=== PATIENT | male | born 1955 | race Caucasian/White ===

== ENCOUNTER 2019-03-30 05:18 | Inpatient (IN) | payer OTHER ==
[2019-03-30 05:46] LABS: #Basophils 0.1 thou/uL (0.0-0.2); #Eosinphils 0.4 thou/uL (0.0-0.7); #Lymphocytes 3.9 thou/uL (1.20-3.40); #Monocytes 0.6 thou/uL (0.11-0.59); #Neutrophils 5.4 thou/uL (1.40-6.50); %Basophils 0.8 % (0.0-1.0); %Eosinophils 3.9 % (0.0-10.0); %Lymphocytes 37.6 % (21.0-51.0); %Neutrophils 51.6 % (42.0-75.0); Hemoglobin 16.4 g/dL (14.0-18.0); Mean Corpuscular HGB CONC 33.7 g/dL (32.0-36.0); Mean Corpuscular Hemoglobin 30.8 pg (27.0-31.0); Mean Corpuscular Volume 91.3 fL (78.0-98.0); Mean Platelet Volume 8.4 fL (7.4-10.4); Platelet Count 226 thou/uL (130-400); RBC Distribution Width 12.7 % (11.5-14.5); Red Blood Cell (RBC) Count 5.31 mill/uL (4.70-6.10); White Blood Cell (WBC) Count 10.4 thou/uL (4.8-10.8)
[2019-03-30] MEDS ORDERED: cloNIDine 0.1 MG TAB ONE (05:46)
--- NOTE | 2019-03-30 07:30 | RAD ---
EXAM: Single view of the chest HISTORY: Hypertension and dizziness COMPARISON: None FINDINGS: Single view of the chest shows a normal sized cardiomediastinal silhouette. There is no lilibeth dence of consolidation, mass, or pleural effusion. The bones are unremarkable. IMPRESSION: No evidence of acute cardiopulmonary disease
[2019-03-30 07:32] LABS: Albumin 4.2 g/dL (3.4-4.8)
[2019-03-30 07:33] LABS: Chloride 103 mmol/L (98-107); Potassium 3.8 mmol/L (3.5-5.1); Sodium 136 mmol/L (136-145)
[2019-03-30 07:34] LABS: Globulin 2.6 g/dL (2.4-3.5); Glucose 115 mg/dL (80-115); Protein, Total 6.8 g/dL (5.8-8.1)
[2019-03-30 07:35] LABS: Anion Gap 13 mmol/L (10-20); Carbon Dioxide 24 mmol/L (23-31)
[2019-03-30 07:36] LABS: Bilirubin, Total 0.5 mg/dL (0.2-1.2)
[2019-03-30 07:37] LABS: Alkaline Phosphatase 77 U/L (40-150); Calc. Creatinine Clearance 0 mL/min (70-130); Estimated GFR-MDRD 66
[2019-03-30 07:38] LABS: BUN (Urea Nitrogen) 19 mg/dL (8.4-25.7)
[2019-03-30 07:39] LABS: AST (SGOT) 20 U/L (5-34)
[2019-03-30 07:40] LABS: ALT (SGPT) 36 U/L (8-55)
[2019-03-30 08:26] LABS: Acetaminophen Less than 6.0 mcg/mL (10.0-30.0); Alcohol Less than 10 mg/dL (Less than 10); Salicylate Less than 8.0 mg/dL (15.0-30.0)
[2019-03-30] MEDS ORDERED: Iopamidol 370 76% 100 ML VIAL ONE (09:09)
[2019-03-30 09:21] LABS: Troponin I Less than 0.010 ng/mL (< 0.028)
[2019-03-30] MEDS ORDERED: Bisacodyl 10 MG SUPP PR PRN (10:01)
[2019-03-30] MEDS ORDERED: Senokot S 8.6-50 MG TAB PO PRN (10:01)
[2019-03-30] MEDS ORDERED: Guaifenesin DM 100-10/5 ML UDCUP PO PRN (10:01)
[2019-03-30] MEDS ORDERED: Acetaminophen 325 MG TAB PO PRN (10:01)
[2019-03-30] MEDS ORDERED: Nitroglycerin 0.4 MG TAB (25 Tab Bottle) PO PRN (10:01)
--- NOTE | 2019-03-30 10:50 | HP ---
REASON FOR ADMISSION: Chest pain, symptomatic bradycardia with brief CPR of 15 minutes. HISTORY OF PRESENTING ILLNESS: The patient gives history of waking up around 2: 30 in the morning with left upper extremity pain. This was a deep pain, which woke him up. It was 6/10 in intensity, lasted for more than an hour. As the pain was still there till 3:30 in the morning, the patient took BC Powder. He tried to get up and walk, but then was feeling dizzy. He managed to call his and finally made it to the emergency room here. On arrival, the patient had a blood pressure of 186 /145 and his pulse was 64. He received Zofran for nausea and also received aspirin and a tablet of clonidine 0.1 mg around 5:49 a.m. The patient developed bradycardia with heart rates going into 30s and had to be resuscitated for 15 minutes. The patient currently is fully awake, alert, and oriented. The entire history of presenting illness is obtained by talking to him. No prior history of low heart rates. No complaints of chest pain at present. He does not have any left upper extremity pain at present. No history of cervical spine trauma or pain in the past. No prior cardiac workup including stress test. Currently, his heart rate is around 64 per minute. PAST MEDICAL AND SURGICAL HISTORY: Hypertension, gout. Colonoscopy done when he was 52 years was normal. He has had ultrasound of the abdomen, which ruled out aortic aneurysm a year back, GERD. CURRENT MEDICATION: 1. Allopurinol 100 mg daily. 2. Prilosec p.r.n. 3. Lisinopril, unknown dose daily. ALLERGIES: NO KNOWN DRUG ALLERGIES. PERSONAL HISTORY: Does not smoke, but occasionally does marijuana. Drinks a 12 pack of beer on the weekend. Does not do any other drugs. FAMILY HISTORY: Mother is living, but has had history of aortic aneurysm. Father at the age of 87 years. He has had history of aortic aneurysm. Has a brother who got operated for aortic aneurysm and is living at present. CODE STATUS: Full. REVIEW OF SYSTEMS: CONSTITUTIONAL: Negative for weight loss or gain, ability to conduct usual activities. SKIN: Negative for rash, itching. EYES: Negative for double vision, pain. ENT/MOUTH: Negative for nose bleeding, neck stiffness, pain, tenderness. CARDIOVASCULAR: Negative for palpitations, dyspnea on exertion, orthopnea. RESPIRATORY: Negative for shortness of breath, wheezing, cough, hemoptysis, fever or night sweats. GASTROINTESTINAL: Negative for poor appetite, abdominal pain, heartburn, nausea , vomiting, constipation, or diarrhea. GENITOURINARY: Negative for urgency, frequency, dysuria, nocturia. MUSCULOSKELETAL: Negative for pain, swelling. NEUROLOGIC/PSYCHIATRIC: Negative for anxiety, depression. ALLERGY/IMMUNOLOGIC: Negative for skin rash, bleeding tendency. PHYSICAL EXAMINATION: GENERAL: The patient is a 63-year-old male who is currently not in any acute distress. VITAL SIGNS: Blood pressure 114/84, pulse 68 per minute, respiratory rate 18 per minute, temperature 98 degrees Fahrenheit, saturating 99% on room air. NECK: Supple. No elevated JVD. HEENT: Eyes; extraocular muscles intact. Pupils reacting to light. Oral cavity, mucous membranes are moist. No exudates or congestion. CARDIOVASCULAR SYSTEM: S1, S2 heard. Regular rhythm. RESPIRATORY SYSTEM: Air entry 2+ bilateral. No rales or rhonchi. ABDOMEN: Soft. Bowel sounds heard. No tenderness, rigidity, or guarding. EXTREMITIES: No peripheral edema or calf tenderness. Peripheral pulses are 2+ bilateral. No ischemic ulcerations or gangrene. CENTRAL NERVOUS SYSTEM: No gross focal deficits noted. The patient is alert, awake, and oriented well. PSYCHIATRIC SYSTEM: The patient's mood is euthymic. No hallucinations or delusions. LABORATORY DATA: EKG done at 5:29 a.m. shows normal sinus rhythm at 67 beats per minute. There is questionable Q-waves in V1, V2. A repeat EKG done at 7:24 a.m. shows sinus bradycardia at 55 beats per minute. No other gross ST-T wave changes seen. White count of 10, H and H 16 and 48, platelet count 226, MCV is 91 with 51% neutrophils. Electrolytes stable. BUN 19, creatinine 1.1. Serum glucose 115. Liver enzymes within normal limits. Troponin x2 negative. CK level 78. BNP is 43. Albumin is 4.2. Lipase is 14. Serum drug screen is negative. Chest x-ray done shows no acute cardiopulmonary abnormalities. CLINICAL IMPRESSION AND PLAN: The patient will be admitted to Telemetry for brief symptomatic bradycardia with brief CPR done for 15 minutes with complete recovery of his pulse. The patient has atypical chest pain with left upper extremity pain. No prior cardiac workup. Dr. Atwood has been consulted from ER. He will be kept n.p.o. Full-dose aspirin and normal saline at 70 mL per hour. Echo with 2D Doppler for LV function. A urine drug screen will also be collected. We will await Cardiology opinion for either a stress test or angiogram per Dr. Atwood's advice. He is currently hemodynamically stable at present. Job ID: [id number] MTDD
--- NOTE | 2019-03-30 11:10 | CON ---
DATE OF CONSULTATION: 03/30/2019 HISTORY OF PRESENT ILLNESS: This is a 63-year-old gentleman, who presents for evaluation of chest discomfort. The patient has a previous history of hypertension. The patient was in his usual state of health when he developed left arm discomfort, this started about 2:30 a.m. The patient came to the emergency room. He was noted to be markedly hypertensive. In the emergency room, the patient suddenly felt weak, lightheaded, and lost consciousness. The patient's arm pain resolved. The patient has no present chest or arm discomfort. PAST MEDICAL HISTORY: Hypertension and gout. PAST SURGICAL HISTORY: None. SOCIAL HISTORY: Nonsmoker. FAMILY HISTORY: There is a family history of abdominal aortic aneurysm. ALLERGIES: NO KNOWN DRUG ALLERGIES. MEDICATIONS: Lisinopril and allopurinol. PHYSICAL EXAMINATION: GENERAL: This is a well-developed gentleman, in no acute distress. VITAL SIGNS: Blood pressure 140/90. NECK: No jugular venous distention. LUNGS: Clear to auscultation. HEART: Regular rate and rhythm. Normal S1 and S2. No murmurs. ABDOMEN: Nondistended. EXTREMITIES: Showed no edema. VASCULAR: Radial pulses are 2+. LABORATORY DATA: White blood cell count 10.4, hemoglobin 16.4, hematocrit 48.5 , and platelets 226. Troponin less than 0.01. IMAGING STUDIES: His EKG revealed normal sinus rhythm, normal ECG. His equipment monitor phototypesetting revealed a sinus arrest. IMPRESSION: 1. Hypertensive crisis. 2. Possible vagovagal syndrome. 3. Hypertension. This gentleman presents with hypertensive crisis and left arm pain. His EKG shows no acute abnormalities. His troponin is unremarkable. The patient did lose consciousness in the emergency room. We have discussed the option of stress testing versus invasive evaluation to evaluate the extent if he has significant coronary artery disease. The patient prefers invasive evaluation. The risks have been explained for the patient including ND, bleeding, stroke, cardiac arrhythmia, cardiac . PLAN: 1. Proceed with cardiac catheterization. 2. EP evaluation. Critical care time 1 hour. Job ID: [id number] MTDD
[2019-03-30] MEDS ORDERED: Lidocaine 1% (PF) 30 ML VIAL ONE (11:23)
[2019-03-30 12:07] LABS: Troponin I 0.011 ng/mL (< 0.028)
[2019-03-30] MEDS ORDERED: Acetaminophen/Codeine 30-300mg Tablet PO PRN ×2 (12:25)
[2019-03-30] MEDS ORDERED: Sodium Chloride 0.9% 200 ML IV PRN (12:25)
[2019-03-30] MEDS ORDERED: Nitroglycerin 0.4 MG TAB (25 Tab Bottle) SL PRN (12:25)
[2019-03-30 13:29] VITALS: BMI 28.5
[2019-03-30] MEDS: Sodium Chloride 0.9% 1,000 ML IV SCH (13:39)
[2019-03-30 14:31] LABS: Amphetamine Not Detected (NotDetected); Barbiturates Screen Not Detected (NotDetected); Benzodiazepine Screen Not Detected (NotDetected); Cocaine Metabolite Screen Not Detected (NotDetected); Medtox Control Line Valid? VALID (VALID); Medtox Reader # READER 1; Methadone Not Detected (NotDetected); Methamphetamine Not Detected (NotDetected); Opiate Screen Not Detected (NotDetected); Oxycodone Screen Not Detected (NotDetected); Phencyclidine (PCP) Not Detected (NotDetected); THC/Cannabinoid Screen Not Detected (NotDetected); Tricyclic Screen Not Detected (NotDetected)
[2019-03-30] MEDS ORDERED: DOPamine/D5W 400 mg/250 ml PREMIX ONE (15:00)
--- NOTE | 2019-03-30 15:06 | CON ---
DATE OF CONSULTATION: REASON FOR CONSULTATION: Bradycardia and syncope. HISTORY OF PRESENT ILLNESS: This is a 63-year-old, otherwise fairly healthy gentleman, who was in his usual state of health until last night when he began to have some left arm pain. He describes it as shooting left arm pain down the inner side of his arm. He got up at about 2 a.m. and went to another room and felt a little bit lightheaded. He went to the emergency room after that. In the emergency room, he was noted to have hypertension and after sitting in the emergency room for period of time, felt hot and flushed and had a syncopal spell. It appears on his monitor that he had sinus bradycardia with a sinus arrest and CPR was initiated, although briefly and ultimately, he was taken to the [facility] because of his left arm pain. His heart catheterization showed no evidence of significant coronary artery disease and normal left ventricular function. His 12-lead ECG shows normal sinus rhythm with normal intervals and no evidence of any iron channelopathy swing or abnormalities. PAST MEDICAL HISTORY: Significant for syncope in the past. He did have one episode of vagally mediated syncope associated with pain in his neck. There is a history of gout, hypertension. ALLERGIES: HE HAS NO KNOWN DRUG ALLERGIES. MEDICATIONS: His current medications include lisinopril. SOCIAL HISTORY: Denies any alcohol, tobacco, or drugs. FAMILY HISTORY: He is and lives with his . No early coronary disease complaints. REVIEW OF SYSTEMS: Otherwise unremarkable. In particular, there is no fevers, chills, nausea, vomiting, diarrhea, change in hearing, taste, vision, smell, abdominal discomfort, blood in urine, blood in the stool, ataxia depression, anxiety. PHYSICAL EXAMINATION: He is comfortable, no acute distress. Blood pressure is 144/80, his heart rate is 70 and regular. His neck reveals no increased JVD. His heart is regular rate. Normal S1, S2. LUNGS: Clear to auscultation bilaterally. ABDOMEN: Soft, nontender. Extremities are no clubbing, cyanosis, or edema. A 12-lead ECG shows them to be normal sinus rhythm and is essentially normal. IMPRESSION AND PLAN: Syncope in a patient with a normal ECG and normal left ventricular function in the setting of an ER visit. Impression I suspect Mr. yuni Li syncope is most likely vagally mediated. He does not have any other clear causes syncope and indeed his ECG shows sinus slowing prior to sinus arrest at the current time. I do not think that he would benefit from permanent pacemaker or any medications. I have counseled him on increasing his fluid intake and watching for signs of syncope. He may since this is the second episode. He may follow up with Electrophysiology as an outpatient. Job ID: [id number]
[2019-03-30] MEDS: Famotidine 20 MG TAB PO SCH (20:03)
[2019-03-30] MEDS ORDERED: Rosuvastatin 20 MG TAB PO SCH (21:00)
[2019-03-30] MEDS ORDERED: Lisinopril 10 MG TAB PO SCH (21:00)
[2019-03-31] MEDS: Sodium Chloride 0.9% 1,000 ML IV SCH (02:00)
[2019-03-31 04:59] LABS: #Basophils 0.1 thou/uL (0.0-0.2); #Eosinphils 0.3 thou/uL (0.0-0.7); #Monocytes 0.5 thou/uL (0.11-0.59); #Neutrophils 4.6 thou/uL (1.40-6.50); %Basophils 0.9 % (0.0-1.0); %Lymphocytes 35.4 % (21.0-51.0); %Monocytes 5.9 % (0.0-10.0); %Neutrophils 53.8 % (42.0-75.0); Hemoglobin 14.4 g/dL (14.0-18.0); Mean Corpuscular HGB CONC 33.7 g/dL (32.0-36.0); Mean Corpuscular Hemoglobin 31.1 pg (27.0-31.0); Mean Corpuscular Volume 92.2 fL (78.0-98.0); Mean Platelet Volume 8.4 fL (7.4-10.4); Platelet Count 194 thou/uL (130-400); RBC Distribution Width 12.7 % (11.5-14.5); Red Blood Cell (RBC) Count 4.64 mill/uL (4.70-6.10); White Blood Cell (WBC) Count 8.6 thou/uL (4.8-10.8)
[2019-03-31 05:19] LABS: Anion Gap 10 mmol/L (10-20); BUN (Urea Nitrogen) 16 mg/dL (8.4-25.7); Calc. Creatinine Clearance 96 mL/min (70-130); Calcium 9.1 mg/dL (7.8-10.44); Carbon Dioxide 28 mmol/L (23-31); Cardiac Risk 5.4 (Less than 4.5); Chloride 106 mmol/L (98-107); Cholesterol 179 mg/dl (< 200 Desired); Estimated GFR-MDRD 71; Glucose 113 mg/dL (80-115); HDL Cholesterol 33 mg/dL (>60 Neg Risk); LDL Cholesterol, Calculated 119 mg/dL; Potassium 4.8 mmol/L (3.5-5.1); Sodium 139 mmol/L (136-145); Triglycerides 136 mg/dL (Less than 150)
[2019-03-31 07:07] VITALS: TEMP 97.7
[2019-03-31] MEDS: Famotidine 20 MG TAB PO SCH (08:32)
[2019-03-31 08:33] VITALS: BP 133/101
[2019-03-31] MEDS ORDERED: Aspirin 325 mg Enteric Coated Tablet PO SCH (09:00)
[2019-03-31] MEDS ORDERED: Enoxaparin Sodium 40 MG/0.4 ML SYRINGE SC SCH (09:00)
[2019-03-31] MEDS ORDERED: Lisinopril 20 MG TAB PO SCH (09:00)
--- NOTE | 2019-03-31 14:13 | PDOC.CTH ---
Cardiology Progress Note - Subjective EP PROGRESS NOTE: 03/31/19 Seen as follow up for sinus arrest and hx of syncope. No recurrent rhythm issues overnight. Likely Dc today. No cardiac complaints at this time - Objective Vital Signs Temp Pulse Resp BP Pulse Ox 03/31/19 07:05 96 03/31/19 07:02 97.7 F 54 L 18 158/66 H 96 03/31/19 03:13 98 F 69 15 157/94 H 98 Weight 204 lb 11.2 oz 03/30/19 03/31/19 04/01/19 06:59 06:59 06:59 Intake Total 1320 Balance 1320 - Physical Examination General/Neuro: alert & oriented x3, NAD Neck: carotid US brisk, no JVD present Lungs: CTA, unlabored respirations Heart: PMI normal, RRR Abdomen: NT/ND, soft - Telemetry Telemetry Rhythm: SR - Labs Result Diagrams: 03/31/19 04:25 03/31/19 04:25 Troponin/CKMB Troponin I 0.011 ng/mL (< 0.028) 03/30/19 11:28 - Assessment/Plan 1. Sinus arrest - transient, likely vasovagal - history of remote pain related vasovagal episode 2. Chest pain - LHC showed minimal CAD, normal EF Monitor for recurrence. Will see back as OP. offered ILR, which patient declined. No definite need for PPM at this time.
--- NOTE | 2019-04-02 12:08 | EKG ---
Test Reason : Blood Pressure : / mmHG Vent. Rate : 067 BPM Atrial Rate : 067 BPM P-R Int : 182 ms QRS Dur : 086 ms QT Int : 404 ms P-R-T Axes : 054 006 032 degrees QTc Int : 426 ms Normal sinus rhythm Septal infarct , age undetermined Abnormal ECG #1 Confirmed by ADELIA RODARTE DO ([id number]), magazine editor EMANUEL LAO ([id number]) on 04/02/2019 12:08:12 PM Referred By: Confirmed By:ADELIA RODARTE DO
--- NOTE | 2019-04-02 12:53 | EKG ---
Test Reason : DIZZY Blood Pressure : / mmHG Vent. Rate : 055 BPM Atrial Rate : 055 BPM P-R Int : 188 ms QRS Dur : 088 ms QT Int : 460 ms P-R-T Axes : 025 021 064 degrees QTc Int : 440 ms Sinus bradycardia Otherwise normal ECG #2 Status post arrest Confirmed by LIZABETH CARTER, CELSO ([id number]), production editor EMANUEL LAO ([id number]) on 04/02/2019 12:53:23 PM Referred By: Confirmed By:CELSO BARONE MD
== END 2019-03-31 11:22 | disposition home or self-care (01) | DRG 287 ==
LOC: ERS 05:18 → ERHOLD 06:00 → OBSVTOIN 07:49 → 2NO 11:33
PROVIDERS: ADMIT Hospitalist; ATTEND Hospitalist
PROC: 4A023N7 Measurement of Cardiac Sampling and Pressure, Left Heart, Percutaneous Approach (ICD-10-PCS; principal; 2019-03-30)
DX: I25.10 Atherosclerotic heart disease of native coronary artery without angina pectoris (principal); I16.9 Hypertensive crisis, unspecified; I10 Essential (primary) hypertension; M10.9 Gout, unspecified; K21.9 Gastro-esophageal reflux disease without esophagitis; I45.5 Other specified heart block
CPT/HCPCS: 36415; 71045; 80048; 80053; 80061; 80306; 80307; 82550; 83690; 83880; 84484; 85025; 85379; 92950; 93005; 93306; 93458; 94760; C1769; J1265; J1644; J1650; J2001; Q9967

== ENCOUNTER 2025-06-07 10:40 | Observation (INO) | payer OTHER ==
[2025-06-07 11:14] LABS: Hematocrit 47.7 % (42.0-52.0); Hemoglobin 15.7 g/dL (14.0-18.0); Mean Corpuscular Hemoglobin 28.5 pg (27.0-31.0); Mean Corpuscular Volume 86.7 fL (78.0-98.0); Platelet Count 226 10x3/uL (130-400); Red Blood Cell (RBC) Count 5.50 mill/uL (4.70-6.10); White Blood Cell (WBC) Count 92.07 10x3/uL (4.8-10.8)
[2025-06-07 11:32] LABS: ALT (SGPT) 63 U/L (Less than 45); AST (SGOT) 46 U/L (11-34); Albumin 4.7 g/dL (3.1-4.5); Alkaline Phosphatase 114 U/L (40-110); Anion Gap 15 mmol/L (10-20); BUN (Urea Nitrogen) 18 mg/dL (8.4-25.7); Bilirubin, Total 0.5 mg/dL (0.3-1.2); Calc. Creatinine Clearance 0 mL/min (70-130); Calcium 10.0 mg/dL (7.8-10.44); Carbon Dioxide 24 mmol/L (23-31); Chloride 103 mmol/L (98-107); Globulin 2.9 g/dL (2.4-3.5); Glucose 153 mg/dL (80-115); Lipase 20 U/L (8-78); Potassium 5.1 mmol/L (3.5-5.1); Sodium 137 mmol/L (136-145)
[2025-06-07] MEDS ORDERED: Ondansetron PF 4 MG/2 ML Vial ONE ×2 (11:36→15:18)
[2025-06-07] MEDS ORDERED: Ketorolac Tromethamine 30 MG (1 mL) VIAL ONE (11:36)
[2025-06-07] MEDS ORDERED: Iopamidol-370 76% 500 ML MDV (1 ML CHARGE) ONE (11:41)
[2025-06-07 11:55] LABS: Anisocytosis SLIGHT = 6-15 cells HPF (0-5); Platelet Adequacy Comment Platelets Normal; Polychromasia SLIGHT = 2-3 cells HPF (0-2); Reflex for Review?? YES; Smudge Cells 311.9 %
[2025-06-07 12:14] LABS: Bacteria/HPF None Seen HPF (None Seen); CAUTI Indications for Culture Dysuria,urgency,freq; Glucose, Urine (Dipstick) Normal (Negative); Leukocyte Negative Leu/uL (Negative); Protein, Urine (Dipstick) Negative (Neg-Trace); Specific Gravity, Urine 1.017 (1.002-1.036); WBC/HPF 0-3 HPF (0-3)
[2025-06-07 12:20] LABS: Urine Culture Reflex No No
[2025-06-07] MEDS ORDERED: Mag-Al 1200 mg/1200 mg/30 ML UDCUP PO PRN (14:00)
[2025-06-07] MEDS ORDERED: Glucagon 1 MG/ML KIT IM PRN (14:00)
[2025-06-07] MEDS ORDERED: Calcium Carbonate 500 MG ChewTAB PO PRN (14:00)
[2025-06-07] MEDS ORDERED: Dextrose 50% Abboject 50 ML SYRINGE SLOW IVP PRN (14:00)
[2025-06-07] MEDS ORDERED: hydrALAZINE 20 MG/ML VIAL SLOW IVP PRN (14:00)
[2025-06-07] MEDS ORDERED: Ondansetron PF 4 MG/2 ML Vial IVP PRN (14:00)
[2025-06-07] MEDS ORDERED: CEFAZOLIN 1 GM VIAL ONE (14:34)
[2025-06-07] MEDS ORDERED: CEFAZOLIN 2 GM VIAL ONE (14:36)
[2025-06-07] MEDS ORDERED: fentaNYL PF 100 MCG/2 ML SYRINGE ONE ×2 (15:16→16:15)
[2025-06-07] MEDS ORDERED: Bupivacaine 0.25% HCL 30 ML VIAL ONE (15:16)
[2025-06-07] MEDS ORDERED: PROPOFOL 20 ML ONE (15:16)
[2025-06-07] MEDS ORDERED: Rocuronium Bromide 10 MG/ML (10ML VIAL) ONE (15:17)
[2025-06-07] MEDS ORDERED: Lidocaine 1% PF 5 ML VIAL ONE (15:17)
[2025-06-07] MEDS ORDERED: SUCCINYLCHOLINE/SOD CL,ISO/PF 200 MG/10 ML SYRINGE FS ONE (16:15)
[2025-06-07] MEDS ORDERED: SUGAMMADEX SODIUM 200 MG/2 ML VIAL ONE (17:15)
[2025-06-07] MEDS ORDERED: HYDROmorphone 0.5 MG/0.5 ML SYR SLOW IVP PRN (17:46)
[2025-06-07 20:04] LABS: INR-International Normal Ratio 1.1; Prothrombin Time 13.8 sec (12.0-14.7)
[2025-06-07 20:05] LABS: PTT 26.1 sec (22.9-36.1)
[2025-06-07] MEDS: Famotidine/PF 20 mg/2ml Vial SLOW IVP SCH (22:18)
[2025-06-07] MEDS: HYDROcodone/Acetaminophen 5/325 mg Tablet PO PRN (22:18)
[2025-06-07] MEDS: Famotidine 20 MG TAB PO SCH (22:19)
[2025-06-08 06:21] LABS: ALT (SGPT) 98 U/L (Less than 45); AST (SGOT) 112 U/L (11-34); Albumin 4.2 g/dL (3.1-4.5); Alkaline Phosphatase 108 U/L (40-110); Anion Gap 21 mmol/L (10-20); BUN (Urea Nitrogen) 16 mg/dL (8.4-25.7); Bilirubin, Total 0.8 mg/dL (0.3-1.2); Calc. Creatinine Clearance 0 mL/min (70-130); Calcium 9.3 mg/dL (7.8-10.44); Carbon Dioxide 19 mmol/L (23-31); Chloride 102 mmol/L (98-107); Globulin 3.0 g/dL (2.4-3.5); Glucose 181 mg/dL (80-115); Potassium 4.6 mmol/L (3.5-5.1); Sodium 137 mmol/L (136-145)
[2025-06-08 06:30] LABS: #Basophils 0.32 10x3/uL (0.0-0.2); #Eosinophils Less than 0.03 10x3/uL (0.0-0.7); #Monocytes 2.16 10x3/uL (0.11-0.59); #Neutrophils 12.44 10x3/uL (1.40-6.50); %Basophils 0.3 % (0.0-1.0); %Eosinophils 0.0 % (0.0-10.0); %Lymphocytes 87.2 % (21.0-51.0); %Monocytes 1.8 % (0.0-10.0); %Neutrophils 10.2 % (42.0-75.0); Hematocrit 44.7 % (42.0-52.0); Hemoglobin 14.3 g/dL (14.0-18.0); Mean Corpuscular Hemoglobin 28.0 pg (27.0-31.0); Mean Corpuscular Volume 87.5 fL (78.0-98.0); Platelet Count 242 10x3/uL (130-400); Red Blood Cell (RBC) Count 5.11 mill/uL (4.70-6.10); White Blood Cell (WBC) Count 121.87 10x3/uL (4.8-10.8)
[2025-06-08 07:17] VITALS: BMI 28.5
[2025-06-08 09:20] VITALS: BP 118/73; TEMP 98
[2025-06-08] MEDS: Acetaminophen 325 MG TAB PO PRN (09:39)
[2025-06-10] MEDS ORDERED: PNEUMOC 20-VAL CONJ-DIP CRM/PF 0.5 ML SYRINGE IM ONE (09:00)
== END 2025-06-08 11:38 | disposition home or self-care (01) ==
LOC: ERS 10:40 → SDC 15:10 → SURG A 18:33
PROVIDERS: ADMIT Internal Medicine; ATTEND Internal Medicine
PROC: 0FT44ZZ Resection of Gallbladder, Percutaneous Endoscopic Approach (ICD-10-PCS; principal; 2025-06-07)
DX: K80.12 Calculus of gallbladder with acute and chronic cholecystitis without obstruction (principal); K82.8 Other specified diseases of gallbladder; I10 Essential (primary) hypertension; C91.10 Chronic lymphocytic leukemia of B-cell type not having achieved remission; M10.9 Gout, unspecified; Z88.0 Allergy status to penicillin; Z79.899 Other long term (current) drug therapy
CPT/HCPCS: 36415; 74177; 76705; 80053; 81001; 83690; 84484; 85025; 85060; 85610; 85730; 86850; 86900; 86901; 88304; 93005; 96365; 96375; C1889; G0378; J0169; J0665; J0690; J1100; J1308; J1885; J2405; J2704; Q9967; S2900